=== PATIENT | female | born 1985 | race Caucasian/White ===

== ENCOUNTER 2018-07-31 21:19 | Inpatient (IN) ==
[2018-07-31] MEDS ORDERED: OXYTOCIN 30 UNITS/500 ML BAG IV PRN ×2 (22:19→22:23)
[2018-07-31] MEDS ORDERED: LACTATED RINGER'S 1,000 ML IV PRN (22:23)
--- NOTE | 2018-07-31 22:29 | History & Physical Report ---
Date of Service July 31, 2018 Assessment & Plan (1) Premature rupture of membranes: heart rate tracing is category 1. No regular uterine activity noted on monitor. Treatment options discussed with the patient. These include immediate labor induction versus observation for spontaneous labor. Risks and benefits of both of these discussed. Patient initially would like to see if spontaneous rupture develops. Patient will be observed for 6-7 hours, if regular contractions have not started by that time Pitocin per induction protocol will be initiated. All questions answered to the patient. History of Present Illness Chief Complaint: Possible rupture of membranes Primary Care Provider: Tasha Regan DO The patient is a 32-year-old 1 para 0 with an EDC of 25 August by first trimester ultrasound who was admitted at 36+ weeks gestational age with spontaneous rupture membranes. Patient states the membranes ruptured at approximately 1930 hrs. She described the fluid is clear. Patient denied any contractions. The patient has had a benign course. She had a low- lying placenta which resolved spontaneously and had a growth ultrasound at 32 weeks for obesity which showed an estimated weight at the 44th percentile. Laboratory values for the show blood type of AB+, antibody negative, rubella immune, hepatitis B negative, she had negative cell free DNA screening, she had an elevated 1 hour Glucola at 16 weeks, with normal 2-hour glucose tolerance is tests both 16 and 28 weeks, and she had a negative third trimester beta strep culture. Allergies Allergy/AdvReac Type Severity Reaction Status Date / Time No Known Allergies Allergy Verified 07/31/18 21:25 Home Medications Home Medications Medication Instructions Recorded Confirmed Type PNV cmb#95-ferrous fumarate-FA 1 tab PO DAILY 07/31/18 07/31/18 History [] Patient History Medical History Eczema Finger injury had pins in finger and then had them removed PCOS (polycystic ovarian syndrome) [place] teeth removed at age 13 Surgical History History of removal of skin mole at age 17 Family History Father Diabetes Hypertension High cholesterol Mother Hypothyroid High cholesterol Social History Preferred Language: Estonian Communication Ability: Effective Zygl[employer] Technician Required: No Beliefs That Will Affect Care: None marital status: Current Living Situation: Spouse Current Living Situation Comment: house Other Information That Helps Us Care for You: No Feels Safe at Home: Yes Safety Concerns: Feels Safe At This Time Smoking Status: Never smoker Hx Alcohol Use: No Hx Substance Use: No Physical Exam Vital Signs (Past 24 Hours): Last Vital Signs Temp 98.6 F 07/31/18 21:31 Pulse 98 H 07/31/18 21:31 Resp 20 07/31/18 21:31 BP 141/77 H 07/31/18 21:31 Constitutional: WD/WN, vitals as above Respiratory: Auscultation: lungs clear to auscultation bilaterally Cardiovascular: RRR, no murmur, no edema Extremities: no calf tenderness Gastrointestinal (Abdomen): Gravid, obese, positive heart tones, no palpable contractions, estimated weight of 7 pounds Genitourinary: Sterile speculum exam: Gross rupture with pooling of amniotic fluid Cervix: 1-2/80/-3 (1) Premature rupture of membranes PROM gestational age: -third trimester
[2018-07-31 22:42] LABS: Hemoglobin 12.2 g/dL (12.0-16.0); Mean Corpuscular Volume 82.4 fL (80-100); Mean Platelet Volume 11.3 fL (7.4-10.4); Platelet Count 183 K/uL (130-400); RDW Coefficient of Variation 14.5 % (11.5-14.5); RDW Standard Deviation 43.1 fL (36.4-46.3); Red Blood Count 4.37 M/uL (4.2-5.4); White Blood Count 13.41 K/uL (4.8-10.8)
[2018-07-31 22:43] LABS: Mean Corpuscular Hgb Conc 33.9 g/dL (32-36)
[2018-08-01] MEDS ORDERED: OXYCODONE/ACETAMINOPHEN 5mg/325mg TAB PO PRN (03:36)
[2018-08-01] MEDS ORDERED: LACTATED RINGER'S 1,000 ML IV PRN (05:03)
[2018-08-01] MEDS ORDERED: ONDANSETRON INJ 2 MG/ML 2 ML VIAL IV PRN ×2 (05:03→09:35)
[2018-08-01] MEDS ORDERED: LACTATED RINGER'S 1,000 ML IV SCH ×3 (05:15→09:33)
--- NOTE | 2018-08-01 06:29 | Obstetrical Progress Note ---
Date of Service August 01, 2018 Assessment & Plan (1) Premature rupture of membranes: - no regular ctx's consistent with active labor - tracing with no decelerations but minimal accelerations - difficult to monitor externally because of panus - IUPC/FSE placed - acceleration/variability with scalp placement - need to augment labor, but will hold pitocin for now until tracing becomes more re-assuring - discussed/explained to patient - all questions answered. Subjective nausea/vomiting Physical Exam Vital Signs (Past 24 Hours): Last Vital Signs Temp 98.2 F 08/01/18 04:56 Pulse 82 08/01/18 04:56 Resp 18 08/01/18 04:56 BP 115/59 L 08/01/18 04:56 Genitourinary: OB Exam Monitor Tracing: + scalp electrode used, + intra- uterine pressure catheter used and + category II (minimal accelerations) no change (1) Premature rupture of membranes PROM gestational age: -third trimester
--- NOTE | 2018-08-01 07:25 | Obstetrical Progress Note ---
Date of Service August 01, 2018 Assessment & Plan (1) Premature rupture of membranes: - FSE applied, but tracing with a "saw tooth" pattern - audibly does not sound like an arrhythmia - tried changing the monitor, cord and leg plate with no change - bedside U/S confirms vtx presentation - attempted to place another FSE, but patient too uncomfortable and did not tolerate the procedure - EFM re-applied - tracing examined from earlier and similar "saw tooth" pattern seen - this could possibly be some type of arrhythmia - will continue to monitor Physical Exam Vital Signs (Past 24 Hours): Last Vital Signs Temp 98.2 F 08/01/18 04:56 Pulse 82 08/01/18 04:56 Resp 18 08/01/18 04:56 BP 115/59 L 08/01/18 04:56 Genitourinary: OB Exam Monitor Tracing: + scalp electrode used and + intra-uterine pressure catheter used no change (1) Premature rupture of membranes PROM gestational age: -third trimester
[2018-08-01] MEDS ORDERED: MoRPHine SULFATE PF 1 MG/ML 10 ML AMP/VIAL ONE (08:37)
[2018-08-01] MEDS ORDERED: fentaNYL citrate 100 MCG/2 ML VIAL ONE (08:37)
[2018-08-01] MEDS ORDERED: OXYTOCIN 10 UNITS/ML VIAL ONE (08:38)
[2018-08-01] MEDS ORDERED: ONDANSETRON INJ 2 MG/ML 2 ML VIAL ONE (08:38)
--- NOTE | 2018-08-01 08:41 | Obstetrical Progress Note ---
Date of Service August 01, 2018 Assessment & Plan (1) Non-reassuring electronic monitoring tracing: - tracing continues to have decreased variability with occasional spontaneous decels - remote from delivery - will move towards C/S for NRFHT'ing - risks/benefits discussed with patient - permit signed Physical Exam Genitourinary: - cx: no change - Tracing Cat II, with occasional decels, no accelerations Results & Data Vital Signs (Past 12 Hours) Vital Signs Temp Pulse Resp BP 08/01/18 07:36 87 126/56 L 08/01/18 07:35 97.9 F 20 08/01/18 04:56 98.2 F 82 18 115/59 L 08/01/18 03:25 77 121/67 08/01/18 03:24 97.9 F 18 08/01/18 01:23 98.1 F 16 07/31/18 22:59 98.2 F 20 07/31/18 22:58 81 128/72 07/31/18 21:31 98.6 F 98 H 20 141/77 H 07/31/18 21:23 98.6 F 98 H 20 141/77 H
--- NOTE | 2018-08-01 08:42 | Anesthesiology Consultation ---
Date of Service August 01, 2018 Assessment & Plan (1) Encounter for pre-operative examination: Chart Review Chart Review: Acceptable Risk for Surgery and Patient NOT seen in Pre Admission Testing Consults Requested none ASA [id number] Proposed Anesthesia Anesthesia Type: Spinal Risk / Benefits Reviewed With: PT / POA / Parent / Guardian, Accepts Plan and I nformed Consent Obtained NPO Date Last Intake of Fluids: 08/01/18 Time Last Intake of Fluids: 08:00 Date Last Intake of Solids: 07/31/18 Time Last Intake of Solids: 18:00 History Surgery Operation Date: 08/01/18 08:35 Proposed Procedures p Section in LD(Bilateral) - Mino Vigil MD Height/Weight Height: 5 ft 11 in Weight: 141.067 kg Allergies Allergy/AdvReac Type Severity Reaction Status Date / Time No Known Allergies Allergy Verified 07/31/18 21:25 Medications Home Medications Medication Instructions Recorded Confirmed Last Taken PNV cmb#95-ferrous fumarate-FA 1 tab PO DAILY 07/31/18 07/31/18 07/31/18 17:00 [] Active Medications Generic Name Dose Route Start Last Admin Trade Name Freq PRN Reason Stop Dose Admin Lactated Ringer's 1,000 mls @ 999 mls/hr 07/31/18 22:23 08/01/18 05:34 Lr IV 08/02/18 22:22 Infused .Q1H1M PRN Infusion Tachysystole Lactated Ringer's 1,000 mls @ 125 mls/hr 08/01/18 05:15 08/01/18 05:34 Lr IV 08/03/18 05:14 125 mls/hr .Q8H TRACY Administration Past Medical History Medical History Eczema Finger injury had pins in finger and then had them removed PCOS (polycystic ovarian syndrome) [place] teeth removed at age 13 Past Family History Family History Father Diabetes Hypertension High cholesterol Mother Hypothyroid High cholesterol Past Surgical History Surgical History History of removal of skin mole at age 17 Past Anesthesia History No Hx of Anesthesia Complications and No Family Hx of Anesthesia Complications History of PONV No Motion Sickness Screening History of Motion Sickness: No Social History Smoking Status: Never smoker Hx Alcohol Use: No Hx Substance Use: No Exercise / Class Metabolic Activity II 4-5 Yardwork/Stairs/Walk up hill Physical Exam Vital Signs Last Vital Signs Temp 36.6 C 08/01/18 07:35 Pulse 87 08/01/18 07:36 Resp 20 08/01/18 07:35 BP 126/56 L 08/01/18 07:36 Constitutional + obese ENMT Mouth: + dentition abnormality; no TMJ abnormality and no TMJ clicking Thyromental Distance: > or= 3.5 Finger Breadths Mallampati Class: II Neck + short neck and + thick neck Respiratory normal respiratory effort Auscultation: lungs clear to auscultation bilaterally Cardiovascular Rate/Rhythm: regular rate and regular rhythm Musculoskeletal Spine: normal cervical ROM Neurologic moves all extremities Motor/Sensory: no sensory deficit Testing Laboratory Results 07/31/18 22:30
[2018-08-01] MEDS ORDERED: AZITHROMYCIN 500 MG in DEXTROSE 5% 250 ML IV SCH (08:45)
[2018-08-01] MEDS ORDERED: CITRIC ACID/SODIUM CITRATE 15 ML UDC ONE (08:55)
[2018-08-01] MEDS ORDERED: CEFAZOLIN 3000MG 65 ML IV SCH (09:00)
[2018-08-01] MEDS ORDERED: CITRIC ACID/SODIUM CITRATE 15 ML UDC PO SCH (09:00)
[2018-08-01] MEDS ORDERED: AZITHROMYCIN 500 MG in DEXTROSE 5% 250 ML IV ONE (09:15)
[2018-08-01] MEDS ORDERED: PHENYLEPHRINE 100MCG/ML 5ML SYR ONE (09:29)
[2018-08-01] MEDS ORDERED: NALOXONE HCL 1 MG in SODIUM CHLORIDE 0.9% 1000ML 1,000 ML IV PRN (09:35)
[2018-08-01] MEDS ORDERED: HYDROmorphone INJ 1 MG/ML SYRINGE IV PRN (09:35)
[2018-08-01] MEDS ORDERED: NALOXONE HCL 0.08 MG in SYRINGE 1.8 ML IV PRN (09:35)
[2018-08-01] MEDS ORDERED: NALOXONE HCL 0.4 MG/1 ML VIAL/CARP IV PRN (09:35)
[2018-08-01] MEDS ORDERED: MoRPHine SULFATE 2 MG/ML CARP IV PRN (09:35)
[2018-08-01] MEDS ORDERED: MoRPHine SULFATE PF 1 MG/ML 10 ML AMP/VIAL INT SPINAL ONE (09:35)
[2018-08-01] MEDS ORDERED: NALBUPHINE HCL INJ 10 MG/ML AMP IV PRN (09:35)
[2018-08-01] MEDS ORDERED: ePHEDrine sulfate 50 MG/ML AMP IV PRN (09:35)
[2018-08-01] MEDS ORDERED: DiphenhydrAMINE HCL 50 MG/ML VIAL IV PRN (09:35)
[2018-08-01] MEDS ORDERED: PROMETHAZINE HCL 25 MG in SODIUM CHLORIDE 0.9% 50 ML IV PRN (09:35)
[2018-08-01] MEDS ORDERED: LACTATED RINGER'S 500 ML IV PRN (09:35)
[2018-08-01] MEDS ORDERED: NO NARCOTICS OR SEDATIVES SCH (09:45)
[2018-08-01] MEDS ORDERED: SODIUM CHLORIDE 0.9% 1000ML 1,000 ML IV SCH (09:45)
[2018-08-01] MEDS ORDERED: SENNA 8.6 MG TAB PO PRN (09:53)
[2018-08-01] MEDS ORDERED: HYDROCORTISONE ACETATE 25 MG SUPP PR PRN (09:53)
[2018-08-01] MEDS ORDERED: BENZOCAINE 20% AER SPR 82.5 GM CAN EXT PRN (09:53)
[2018-08-01] MEDS ORDERED: DIPHTHERIA/TETANUS/PERTUSSIS 0.5 ML SYR/VIAL IM ONE (09:53)
[2018-08-01] MEDS ORDERED: SUPERCREAM 0.870% 15 GM JAR EXT PRN (09:53)
[2018-08-01] MEDS ORDERED: MAGNESIUM HYDROXIDE SUSP 30 ML UDC PO PRN (09:53)
--- NOTE | 2018-08-01 10:00 | Post Operative Brief Note ---
Immediate Post Op Note v1 Date of Surgery August 01, 2018 Pre & Post Diagnosis Operation Date: 08/01/18 08:35 Pre-Op Diagnosis: 1. Term;Non-reassurring FHR pattern Post-Op Diagnosis: Same Procedure Operation Date: 08/01/18 08:35 Actual Procedures p Section in LD(Bilateral) - Tyler Villegas Jr, MD, FACOG Surgeon Tyler Villegas Jr, MD, FACOG Tinner Helper Yaritza Estimated Blood Loss 800 Findings See Below (viable female, Apgars 7/10, weight 7lbs 3 ozs, gasses pending, vaccuum extration, normal appearing tubes and ovaries bilaterally) Drains Dixon Catheter
[2018-08-01 10:05] LABS: Base Excess Cord Arterial Bld -3.3 mEq/L (-9-1.8); CO2 Cord Arterial Blood 67 mmHg (39.1-73.5); HCO3 Cord Arterial Blood 26 mmol/L (19.7-28.5); pH Cord Arterial Blood 7.21 (7.1-7.38)
[2018-08-01 10:11] LABS: Base Excess Cord Venous Blood -2.9 mEq/L (-7.7-1.9); Cord Venous Blood HCO3 25 mmol/L (18.4-26.8); Cord Venous Blood PCO2 53 mmHg (30.4-57.2); Cord Venous Blood PO2 17 mmHg (14.1-43.3); Cord Venous Blood pH 7.29 (7.20-7.44)
[2018-08-01 10:12] LABS: O2 Saturation Cord Venous Bld < 60.0 % (<68)
--- NOTE | 2018-08-01 10:21 | Anesthesiology Progress Note ---
Date of Service August 01, 2018 Anesthesia Post Procedure Vital Signs Vital Signs: Temp Pulse Resp BP Pulse Ox 08/01/18 10:19 97 H 98 08/01/18 10:15 101 H 93 08/01/18 10:14 98 H 91 08/01/18 10:09 98 H 109/55 L 94 08/01/18 07:36 87 126/56 L 08/01/18 07:35 36.6 C 20 08/01/18 04:56 36.8 C 82 18 115/59 L 08/01/18 03:25 77 121/67 08/01/18 03:24 36.6 C 18 08/01/18 01:23 36.7 C 16 07/31/18 22:59 36.8 C 20 07/31/18 22:58 81 128/72 07/31/18 21:31 37 C 98 H 20 141/77 H 07/31/18 21:23 37.0 C 98 H 20 141/77 H Pain Intensity Bilateral Abdomen: Pain Intensity: 3 Notes Mental Status: alert / awake / arousable Patient Amnestic to Procedure: No Nausea / Vomiting: adequately controlled Pain: adequately controlled Airway Patency, RR, SpO2: stable & adequate BP & HR: stable & adequate Hydration State: stable & adequate Neuraxial Anesthesia: was administered and sensory block is resolving Anesthetic Complications: no major complications apparent and Pt Satisfied with anesthetic care
[2018-08-01] MEDS: OXYTOCIN 20 UNITS in LACTATED RINGER'S 1,000 ML IV SCH ×2 (11:03→19:16)
[2018-08-01] MEDS: KETOROLAC 30 MG/ML VIAL IV PRN ×2 (11:58→19:15)
[2018-08-01] MEDS: SIMETHICONE 80 MG CHEW PO SCH ×3 (15:07→20:56)
[2018-08-01] MEDS: DOCUSATE SODIUM 100 MG CAP PO SCH (20:56)
--- NOTE | 2018-08-01 21:37 | Operative Report ---
DATE OF OPERATION: 08/01/2018 PREOPERATIVE DIAGNOSES: 1. Spontaneous rupture of membranes at 36 weeks' gestational age. 2. Nonreassuring heart rate tracing. POSTOPERATIVE DIAGNOSES: 1. Spontaneous rupture of membranes at 36 weeks' gestational age. 2. Nonreassuring heart rate tracing. PROCEDURE PERFORMED: Primary lower cervical transverse section. SURGEON: Tyler Villegas MD. SOIL BIOLOGY TEACHER: Dr. Mino Loredo. ANESTHESIA: Spinal. FINDINGS: Viable female infant with Apgars of 7 and 10. Arterial and venous cord gases pending. Normal appearing tubes and ovaries bilaterally. PROCEDURE IN DETAIL: The patient was taken to the operating room and after spinal anesthesia, she was placed in supine position and draped and prepped in the usual fashion. Pfannenstiel type incision was made. Underlying subcutaneous tissue was dissected down to the ventral abdominal fascia, which was nicked and opened in a horizontal manner. Preperitoneal fascia was dissected away until the peritoneal cavity was entered and opened in a vertical manner. The Dimitris self-retaining retractor was inserted into the incision and deployed. The peritoneum overlying the uterus was elevated, opened in a semi-lunar fashion, the inferior margin of which was taken down creating the bladder flap. The uterus was entered sharply and extended in a semilunar fashion manually. Viable female infant was delivered by vacuum extraction. Cord was clamped and cut and the baby was passed off to pediatrics who was in attendance for the delivery. Cord gases, cord blood samples obtained. Placenta was delivered spontaneously and the uterus was exteriorized. The uterine cavity was wiped clean of any residual blood tissue and/or clot. The uterine incision was then closed with 2 layers of 4-0 Vicryl, the first a running locking stitch, the second an imbricating stitch. Hemostasis achieved and the uterus was returned to the pelvic cavity. The pericolic gutters were cleared bilaterally of any blood tissue and/or clot. Inspection of the incision again showed hemostasis. Sponge and needle count was correct. The Dimitris retractor was removed. The rectus muscle was then plicated in the midline with a running 2-0 Vicryl stitch. The fascia was closed laterally with a 0 Vicryl suture. The subcutaneous tissue was thoroughly irrigated and reapproximated with interrupted 2-0 plain sutures. The skin incision was closed with a 4-0 Monocryl subcuticular stitch. Sterile dressing was applied. The patient was taken to the recovery room in satisfactory condition. I attest to the content of the Intraoperative Record and any orders documented therein. Any exception s are noted below.
[2018-08-02] MEDS: KETOROLAC 30 MG/ML VIAL IV PRN (02:06)
[2018-08-02] MEDS ORDERED: LACTATED RINGER'S 1,000 ML IV SCH (02:30)
[2018-08-02] MEDS ORDERED: DC INTRASPINAL MORPHINE ONE (03:35)
[2018-08-02] MEDS ORDERED: DiphenhydrAMINE HCL 50 MG/ML VIAL IV PRN (03:36)
[2018-08-02] MEDS ORDERED: PROMETHAZINE HCL 25 MG in SODIUM CHLORIDE 0.9% 50 ML IV PRN (03:36)
[2018-08-02] MEDS ORDERED: ONDANSETRON INJ 2 MG/ML 2 ML VIAL IV PRN (03:36)
[2018-08-02] MEDS ORDERED: KETOROLAC 30 MG/ML VIAL IV PRN (03:36)
--- NOTE | 2018-08-02 07:10 | Obstetrical Progress Note ---
Date of Service <Nataliia De Leon MD - Last Filed: 08/02/18 08:09> August 02, 2018 Assessment & Plan <Nataliia De Leon MD - Last Filed: 08/02/18 08:09> (1) delivery delivered: 32yo with for nonreassuring heart tones. POST-OP DAY #1 -Doing well -Routine post-op/ care -Ambulation encouraged -Pain Control -will continue to monitor Subjective <Nataliia De Leon MD - Last Filed: 08/02/18 08:09> Ambulation: ambulating normally Voiding: no voiding problems (shah removed ~3:30Am, has not voided yet) Passing Gas:: Yes Diet Tolerance:: regular diet (with breakfast this AM. Has been on clear liquids up until then.) Lochia:: Moderate Feeding Type:: breast feeding Current Pain Level(1-10): 2 Respiratory: no dyspnea Cardiovascular: no chest pain, no palpitations and no calf pain Gastrointestinal: no nausea and no vomiting Neurologic: + headache(s) (had one last night) Physical Exam <Nataliia De Leon MD - Last Filed: 08/02/18 08:09> Vital Signs (Past 24 Hours) Last Vital Signs Temp 36.8 C 08/02/18 03:35 Pulse 94 H 08/02/18 03:35 Resp 18 08/02/18 03:35 BP 113/74 08/02/18 03:35 Pulse Ox 95 08/02/18 03:35 Respiratory normal respiratory effort, lungs clear to auscultation Cardiovascular Rate/Rhythm: regular rate and regular rhythm Extremities: no calf tenderness Gastrointestinal (Abdomen) Inspection/Auscultation: + abdominal surgical incision (covered with clean, dry bandage) Genitourinary OB Exam Abdomen: + fundal height Fundus: + firm and + relation to umbilicus (1 above) Results & Data <Nataliia De Leon MD - Last Filed: 08/02/18 08:09> Laboratory Results Laboratory Results - last 24 hr 07/31/18 08/01/18 08/01/18 22:30 09:22 09:34 Cord ABG pH 7.21 Cord ABG pCO2 67 Cord ABG pO2 16.0 Cord ABG HCO3 26 Cord ABG Base Excess -3.3 Cord ABG O2 Sat < 60.0 Cord VBG pH 7.29 Cord VBG pCO2 53 Cord VBG pO2 17 Cord VBG HCO3 25 Cord VBG Base Excess -2.9 Cord VBG O2 Sat < 60.0 Barometric Pressure 732.1 732.1 Blood Gas Comments S[place]UL[place] S[place] Blood Type AB Positive Antibody Screen NEGATIVE Medications Administered Home Medications PNV cmb#95-ferrous fumarate-FA [] 1 tab PO DAILY 07/31/18 [History Confirmed 07/31/18] Active Medications Benzocaine (Dermoplast Pain Relieving [place]) 1 appln EXT UD PRN PRN Reason: use on skin as needed Stop: 08/31/18 09:52 Bisacodyl (Dulcolax) 5 mg PO 2000 [facility] Stop: 08/02/18 20:01 Bisacodyl (Dulcolax) 10 mg MT PRN PRN PRN Reason: Constipation Stop: 09/02/18 09:53 Cocaine HCl (Supercream 0.870%) 1 gm EXT UD PRN PRN Reason: hemmorrhoidal inflammation Stop: 08/15/18 09:52 Diphenhydramine HCl (Benadryl) 25 mg IV QID PRN PRN Reason: Itching Stop: 09/01/18 03:35 Diphenhydramine HCl (Benadryl Capsule) 25 mg PO QID PRN PRN Reason: Itching Stop: 09/01/18 03:35 Docusate Sodium (Colace) 100 mg PO BID [facility] Stop: 08/31/18 20:59 Last Admin: 08/01/18 20:56 Dose: Not Given Documented by: Ferrous Sulfate (Feosol) 325 mg PO QAM TRACY Stop: 09/01/18 08:59 Hydrocortisone (Anusol Hc) 25 mg MT BID PRN PRN Reason: Hemorrhoids Stop: 08/31/18 09:52 Oxytocin (Pitocin) 30 units in 500 mls @ 333.333 mls/hr IV .Q1H30M PRN; Protocol PRN Reason: Bleeding Control Stop: 08/30/18 22:18 Lactated Ringer's (Lr) 1,000 mls @ 999 mls/hr IV .Q1H1M PRN PRN Reason: Tachysystole Stop: 08/02/18 22:22 Last Infusion: 08/01/18 05:34 Dose: Infused Documented by: Oxytocin (Pitocin) 30 units in 500 mls @ 1 mls/hr IV .Q24H PRN; Protocol PRN Reason: Labor Induction/Augmentation Stop: 08/02/18 22:22 Lactated Ringer's (Lr) 1,000 mls @ 125 mls/hr IV .Q8H TRACY Stop: 08/03/18 05:14 Last Infusion: 08/01/18 08:30 Dose: 999 mls/hr Documented by: Lactated Ringer's (Lr) 1,000 mls @ 999 mls/hr IV .Q1H1M PRN PRN Reason: (Pre-Anesthesia) Stop: 08/31/18 05:02 Lactated Ringer's (Lr) 1,000 mls @ 125 mls/hr IV .Q8H TRACY Stop: 08/31/18 09:32 Lactated Ringer's (Lr) 1,000 mls @ 125 mls/hr IV .Q8H TRACY Stop: 09/01/18 02:29 Promethazine HCl 25 mg/ Sodium (Chloride) 51 mls @ 204 mls/hr IV Q4H PRN PRN Reason: Nausea And Vomiting Stop: 09/01/18 03:35 Ibuprofen (Motrin) 600 mg PO Q4H PRN PRN Reason: Pain Stop: 08/31/18 09:52 Ketorolac Tromethamine (Toradol) 30 mg IV Q6H PRN PRN Reason: Pain Stop: 08/07/18 03:35 Magnesium Hydroxide (Milk Of Magnesia) 30 ml PO HS PRN PRN Reason: Constipation Stop: 08/31/18 09:52 Ondansetron HCl (Zofran) 4 mg IV Q4H PRN PRN Reason: Nausea Stop: 08/31/18 05:02 Ondansetron HCl (Zofran) 4 mg IV Q4H PRN PRN Reason: Nausea And Vomiting Stop: 09/01/18 03:35 Oxycodone/Acetaminophen (Percocet 5mg/325mg) 1 - 2 tab PO Q4H PRN PRN Reason: Pain Stop: 08/15/18 03:35 Prenat Multivit/[place]/Iron/Folic Ac ( Vitamin) 1 tab PO QAM TRACY Stop: 09/01/18 08:59 Sennosides (Senokot) 17.2 mg PO HS PRN PRN Reason: Constipation Stop: 08/31/18 09:52 Simethicone (Mylicon) 80 mg PO QID [facility] Stop: 08/31/18 12:59 Last Admin: 08/01/18 20:56 Dose: Not Given Documented by: <Mino Vigil MD - Last Filed: 08/08/18 09:44> Co-Signing Physician Notes Patient seen and evaluated and agree with the above finding and plan
--- NOTE | 2018-08-02 07:28 | Anesthesiology Progress Note ---
Date of Service August 02, 2018 Anesthesia Post Procedure Vital Signs Vital Signs: Temp Pulse Pulse Resp BP BP Pulse Ox 08/02/18 03:35 36.8 C 94 H 18 113/74 95 08/02/18 02:10 18 99 08/02/18 01:00 18 96 08/02/18 00:15 18 96 08/01/18 23:05 36.7 C 102 H 18 118/61 94 08/01/18 22:25 18 93 08/01/18 22:03 18 92 08/01/18 20:56 16 93 08/01/18 19:20 37.5 C 108 H 18 98/63 L 95 08/01/18 18:00 18 100 08/01/18 17:00 18 100 08/01/18 16:00 18 99 08/01/18 15:05 37.4 C 99 H 18 113/78 96 08/01/18 14:40 36.9 C 84 16 106/67 99 08/01/18 13:40 89 18 114/72 100 08/01/18 13:10 36.8 C 82 18 115/72 97 08/01/18 12:35 37.2 C 82 18 103/63 100 08/01/18 12:24 82 100 08/01/18 12:19 84 118/69 98 08/01/18 12:14 87 99 08/01/18 12:09 36.9 C 88 20 117/65 100 08/01/18 12:04 77 100 08/01/18 11:59 81 119/71 100 08/01/18 11:54 93 H 100 08/01/18 11:49 89 100 08/01/18 11:44 94 H 100 08/01/18 11:39 95 H 20 138/79 100 08/01/18 11:34 98 H 100 08/01/18 11:29 89 133/76 100 08/01/18 11:24 90 100 08/01/18 11:20 91 H 103/55 L 08/01/18 11:19 88 100 08/01/18 11:14 92 H 100 08/01/18 11:10 37.0 C 88 20 120/68 08/01/18 11:09 89 16 100 08/01/18 11:04 86 100 08/01/18 10:59 79 16 128/71 100 08/01/18 10:54 85 100 08/01/18 10:49 90 16 120/61 100 08/01/18 10:44 88 100 08/01/18 10:39 95 H 16 121/65 100 08/01/18 10:34 95 H 100 08/01/18 10:29 93 H 20 121/68 100 08/01/18 10:24 98 H 96 08/01/18 10:21 92 H 114/59 L 08/01/18 10:19 97 H 20 98 08/01/18 10:15 101 H 93 08/01/18 10:14 98 H 91 08/01/18 10:09 37.0 C 98 H 20 109/55 L 94 08/01/18 07:36 87 126/56 L 08/01/18 07:35 36.6 C 20 Pain Intensity Bilateral Abdomen: Pain Intensity: 1 Notes Mental Status: alert / awake / arousable Patient Amnestic to Procedure: No Nausea / Vomiting: adequately controlled Pain: adequately controlled Airway Patency, RR, SpO2: stable & adequate BP & HR: stable & adequate Hydration State: stable & adequate Neuraxial Anesthesia: was administered and sensory block resolved Anesthetic Complications: no major complications apparent and Pt Satisfied with anesthetic care
[2018-08-02 08:00] LABS: Basophils # (auto) 0.02 K/uL (0-0.2); Basophils % (auto) 0.1 %; Eosinophils # (auto) 0.19 K/uL (0-0.5); Eosinophils % (auto) 1.3 %; Hematocrit (blood only) 32.4 % (37-47); Hemoglobin 10.9 g/dL (12.0-16.0); Immature Granulocytes # (auto) 0.04 K/uL (0.00-0.02); Immature Granulocytes % (auto) 0.3 %; Lymphocytes % (auto) 11.4 %; Mean Corpuscular Hgb Conc 33.6 g/dL (32-36); Mean Corpuscular Volume 83.9 fL (80-100); Monocytes % (auto) 6.1 %; Neutrophils # (auto) 12.02 K/uL (1.4-6.5); Neutrophils % (auto) 80.8 %; Platelet Count 150 K/uL (130-400); RDW Coefficient of Variation 14.7 % (11.5-14.5); RDW Standard Deviation 44.7 fL (36.4-46.3); Red Blood Count 3.86 M/uL (4.2-5.4); White Blood Count 14.87 K/uL (4.8-10.8)
[2018-08-02] MEDS: SIMETHICONE 80 MG CHEW PO SCH ×4 (08:42→19:45)
[2018-08-02] MEDS: FERROUS SULFATE 325 MG TAB PO SCH (08:42)
[2018-08-02] MEDS: PRENATAL VITAMIN 1 TAB PO SCH (08:43)
[2018-08-02] MEDS: DOCUSATE SODIUM 100 MG CAP PO SCH ×2 (08:43→19:46)
[2018-08-02] MEDS: IBUPROFEN 600 MG TAB PO PRN ×3 (08:46→19:46)
[2018-08-02] MEDS ORDERED: BISACODYL 5 MG TABEC PO SCH (20:00)
[2018-08-03] MEDS: IBUPROFEN 600 MG TAB PO PRN ×5 (02:30→22:54)
--- NOTE | 2018-08-03 06:41 | Obstetrical Progress Note ---
Date of Service <Nataliia De Leon MD - Last Filed: 08/03/18 07:06> August 03, 2018 Assessment & Plan <Nataliia De Leon MD - Last Filed: 08/03/18 07:06> (1) delivery delivered: 32yo with for nonreassuring heart tones. POST-OP DAY #2 -Doing well. Feels well enough for discharge today -Discharge instructions reviewed Until Discharge: -Routine post-op/ care -Ambulation encouraged -Pain Control Subjective <Nataliia De Leon MD - Last Filed: 08/03/18 07:06> Ambulation: ambulating normally Voiding: no voiding problems Passing Gas:: Yes Diet Tolerance:: regular diet Lochia:: Moderate Feeding Type:: breast feeding Current Pain Level(1-10): 3 Respiratory: no dyspnea Cardiovascular: + edema; no chest pain, no palpitations and no calf pain Gastrointestinal: no nausea and no vomiting Neurologic: no headache(s) Physical Exam <Nataliia De Leon MD - Last Filed: 08/03/18 07:06> Vital Signs (Past 24 Hours) Last Vital Signs Temp 36.4 C L 08/02/18 23:05 Pulse 80 08/02/18 23:05 Resp 18 08/02/18 23:05 BP 106/71 08/02/18 23:05 Pulse Ox 97 08/02/18 15:30 Respiratory normal respiratory effort, lungs clear to auscultation Cardiovascular Rate/Rhythm: regular rate and regular rhythm Extremities: + pedal edema; no calf tenderness Gastrointestinal (Abdomen) Inspection/Auscultation: + abdominal surgical incision (incision clean, dry, intact. No evidence of bleeding or drainage) Results & Data <Nataliia De Leon MD - Last Filed: 08/03/18 07:06> Laboratory Results Laboratory Results - last 24 hr 08/02/18 07:47 WBC 14.87 H RBC 3.86 L Hgb 10.9 L Hct 32.4 L MCV 83.9 MCH 28.2 MCHC 33.6 RDW Std Deviation 44.7 RDW Coeff of Roderick 14.7 H Plt Count 150 MPV 11.0 H Immature Gran % (Auto) 0.3 Neut % (Auto) 80.8 Lymph % (Auto) 11.4 [place] % (Auto) 6.1 Eos % (Auto) 1.3 Baso % (Auto) 0.1 Immature Gran # (Auto) 0.04 H Neut # (Auto) 12.02 H Lymph # (Auto) 1.70 [place] # (Auto) 0.90 H Eos # (Auto) 0.19 Baso # (Auto) 0.02 Medications Administered Home Medications PNV cmb#95-ferrous fumarate-FA [] 1 tab PO DAILY 07/31/18 [History Confirmed 07/31/18] Active Medications Benzocaine (Dermoplast Pain Relieving [place]) 1 appln EXT UD PRN PRN Reason: use on skin as needed Stop: 08/31/18 09:52 Bisacodyl (Dulcolax) 10 mg VA PRN PRN PRN Reason: Constipation Stop: 09/02/18 09:53 Cocaine HCl (Supercream 0.870%) 1 gm EXT UD PRN PRN Reason: hemmorrhoidal inflammation Stop: 08/15/18 09:52 Diphenhydramine HCl (Benadryl) 25 mg IV QID PRN PRN Reason: Itching Stop: 09/01/18 03:35 Diphenhydramine HCl (Benadryl Capsule) 25 mg PO QID PRN PRN Reason: Itching Stop: 09/01/18 03:35 Docusate Sodium (Colace) 100 mg PO BID [facility] [place] [place] Stop: 08/31/18 20:59 Last Admin: 08/02/18 19:46 Dose: 100 mg Documented by: Ferrous Sulfate (Feosol) 325 mg PO QAM [facility] Stop: 09/01/18 08:59 Last Admin: 08/02/18 08:42 Dose: 325 mg Documented by: Hydrocortisone (Anusol Hc) 25 mg VA BID PRN PRN Reason: Hemorrhoids Stop: 08/31/18 09:52 Oxytocin (Pitocin) 30 units in 500 mls @ 333.333 mls/hr IV .Q1H30M PRN; Protocol PRN Reason: Bleeding Control Stop: 08/30/18 22:18 Lactated Ringer's (Lr) 1,000 mls @ 999 mls/hr IV .Q1H1M PRN PRN Reason: (Pre-Anesthesia) Stop: 08/31/18 05:02 Lactated Ringer's (Lr) 1,000 mls @ 125 mls/hr IV .Q8H [facility] Stop: 08/31/18 09:32 Lactated Ringer's (Lr) 1,000 mls @ 125 mls/hr IV .Q8H [facility] Stop: 09/01/18 02:29 Promethazine HCl 25 mg/ Sodium (Chloride) 51 mls @ 204 mls/hr IV Q4H PRN PRN Reason: Nausea And Vomiting Stop: 09/01/18 03:35 Ibuprofen (Motrin) 600 mg PO Q4H PRN PRN Reason: Pain Stop: 08/31/18 09:52 Last Admin: 08/03/18 02:30 Dose: 600 mg Documented by: Ketorolac Tromethamine (Toradol) 30 mg IV Q6H PRN PRN Reason: Pain Stop: 08/07/18 03:35 Magnesium Hydroxide (Milk Of Magnesia) 30 ml PO HS PRN PRN Reason: Constipation Stop: 08/31/18 09:52 Ondansetron HCl (Zofran) 4 mg IV Q4H PRN PRN Reason: Nausea Stop: 08/31/18 05:02 Ondansetron HCl (Zofran) 4 mg IV Q4H PRN PRN Reason: Nausea And Vomiting Stop: 09/01/18 03:35 Oxycodone/Acetaminophen (Percocet 5mg/325mg) 1 - 2 tab PO Q4H PRN PRN Reason: Pain Stop: 08/15/18 03:35 Prenat Multivit/[place]/Iron/Folic Ac ( Vitamin) 1 tab PO QAM [facility] [place] Stop: 09/01/18 08:59 Last Admin: 08/02/18 08:43 Dose: 1 tab Documented by: Sennosides (Senokot) 17.2 mg PO HS PRN PRN Reason: Constipation Stop: 08/31/18 09:52 Simethicone (Mylicon) 80 mg PO QID [facility] Stop: 08/31/18 12:59 Last Admin: 08/02/18 19:45 Dose: 80 mg Documented by: <Irma Higginbotham MD - Last Filed: 08/03/18 08:07> Co-Signing Physician Notes I have reviewed the resident's note and examined the patient myself, and agree with the note above.
[2018-08-03 06:44] LABS: Hematocrit (blood only) 31.8 % (37-47); Hemoglobin 10.6 g/dL (12.0-16.0)
[2018-08-03] MEDS: DOCUSATE SODIUM 100 MG CAP PO SCH ×2 (08:21→21:01)
[2018-08-03] MEDS: PRENATAL VITAMIN 1 TAB PO SCH (08:21)
[2018-08-03] MEDS: SIMETHICONE 80 MG CHEW PO SCH ×4 (08:21→21:01)
[2018-08-03] MEDS: FERROUS SULFATE 325 MG TAB PO SCH (08:21)
[2018-08-03] MEDS ORDERED: BISACODYL 10 MG SUPP PR PRN (09:54)
[2018-08-04] MEDS: IBUPROFEN 600 MG TAB PO PRN ×2 (04:54→09:10)
--- NOTE | 2018-08-04 06:59 | Obstetrical Progress Note ---
Date of Service <Nataliia De Leon MD - Last Filed: 08/04/18 07:17> August 04, 2018 Assessment & Plan <Nataliia De Leon MD - Last Filed: 08/04/18 07:17> (1) delivery delivered: 32yo with for nonreassuring heart tones. POST-OP DAY #3 -Doing well. -DISCHARGE TODAY -Discharge instructions reviewed Day #:: 3 Subjective <Nataliia De Leon MD - Last Filed: 08/04/18 07:17> Ambulation: ambulating normally Voiding: no voiding problems Passing Gas:: Yes Diet Tolerance:: regular diet Lochia:: Moderate Feeding Type:: breast feeding Respiratory: no dyspnea Cardiovascular: no chest pain, no palpitations and no calf pain Gastrointestinal: no nausea and no vomiting Neurologic: no headache(s) Physical Exam <Nataliia De Leon MD - Last Filed: 08/04/18 07:17> Vital Signs (Past 24 Hours) Last Vital Signs Temp 36.5 C 08/03/18 23:20 Pulse 71 08/03/18 23:20 Resp 18 08/03/18 23:20 BP 120/78 08/03/18 19:15 Pulse Ox 97 08/03/18 19:15 Respiratory normal respiratory effort, lungs clear to auscultation Cardiovascular Rate/Rhythm: regular rate and regular rhythm Extremities: no calf tenderness Gastrointestinal (Abdomen) Inspection/Auscultation: + abdominal surgical incision (clean, dry and intact with no evidence of bleeding or drainage) Genitourinary OB Exam Abdomen: + fundal height Fundus: + firm and + relation to umbilicus (at umbilicus) Results & Data <Nataliia De Leon MD - Last Filed: 08/04/18 07:17> Medications Administered Home Medications PNV cmb#95-ferrous fumarate-FA [] 1 tab PO DAILY 07/31/18 [History Confirmed 07/31/18] oxycodone-acetaminophen 1 tab PO Q6H PRN #20 tab 08/03/18 [Rx] Active Medications Benzocaine (Dermoplast Pain Relieving [place]) 1 appln EXT UD PRN PRN Reason: use on skin as needed Stop: 08/31/18 09:52 Bisacodyl (Dulcolax) 10 mg SD PRN PRN PRN Reason: Constipation Stop: 09/02/18 09:53 Cocaine HCl (Supercream 0.870%) 1 gm EXT UD PRN PRN Reason: hemmorrhoidal inflammation Stop: 08/15/18 09:52 Diphenhydramine HCl (Benadryl) 25 mg IV QID PRN PRN Reason: Itching Stop: 09/01/18 03:35 Diphenhydramine HCl (Benadryl Capsule) 25 mg PO QID PRN PRN Reason: Itching Stop: 09/01/18 03:35 Docusate Sodium (Colace) 100 mg PO BID [facility] Stop: 08/31/18 20:59 Last Admin: 08/03/18 21:01 Dose: 100 mg Documented by: Ferrous Sulfate (Feosol) 325 mg PO QAM [facility] Stop: 09/01/18 08:59 Last Admin: 08/03/18 08:21 Dose: 325 mg Documented by: Hydrocortisone (Anusol Hc) 25 mg SD BID PRN PRN Reason: Hemorrhoids Stop: 08/31/18 09:52 Oxytocin (Pitocin) 30 units in 500 mls @ 333.333 mls/hr IV .Q1H30M PRN; Protocol PRN Reason: Bleeding Control Stop: 08/30/18 22:18 Lactated Ringer's (Lr) 1,000 mls @ 999 mls/hr IV .Q1H1M PRN PRN Reason: (Pre-Anesthesia) Stop: 08/31/18 05:02 Lactated Ringer's (Lr) 1,000 mls @ 125 mls/hr IV .Q8H [facility] Stop: 08/31/18 09:32 Lactated Ringer's (Lr) 1,000 mls @ 125 mls/hr IV .Q8H [facility] Stop: 09/01/18 02:29 Promethazine HCl 25 mg/ Sodium (Chloride) 51 mls @ 204 mls/hr IV Q4H PRN PRN Reason: Nausea And Vomiting Stop: 09/01/18 03:35 Ibuprofen (Motrin) 600 mg PO Q4H PRN PRN Reason: Pain Stop: 08/31/18 09:52 Last Admin: 08/04/18 04:54 Dose: 600 mg Documented by: Ketorolac Tromethamine (Toradol) 30 mg IV Q6H PRN PRN Reason: Pain Stop: 08/07/18 03:35 Magnesium Hydroxide (Milk Of Magnesia) 30 ml PO HS PRN PRN Reason: Constipation Stop: 08/31/18 09:52 Ondansetron HCl (Zofran) 4 mg IV Q4H PRN PRN Reason: Nausea Stop: 08/31/18 05:02 Ondansetron HCl (Zofran) 4 mg IV Q4H PRN PRN Reason: Nausea And Vomiting Stop: 09/01/18 03:35 Oxycodone/Acetaminophen (Percocet 5mg/325mg) 1 - 2 tab PO Q4H PRN PRN Reason: Pain Stop: 08/15/18 03:35 Prenat Multivit/[place]/Iron/Folic Ac ( Vitamin) 1 tab PO QAM [facility] Stop: 09/01/18 08:59 Last Admin: 08/03/18 08:21 Dose: 1 tab Documented by: Sennosides (Senokot) 17.2 mg PO HS PRN PRN Reason: Constipation Stop: 08/31/18 09:52 Simethicone (Mylicon) 80 mg PO QID [facility] Stop: 08/31/18 12:59 Last Admin: 08/03/18 21:01 Dose: 80 mg Documented by: <Grisel Weber MD, FACOG - Last Filed: 08/04/18 07:26> Co-Signing Physician Notes Resident Physician Supervision Note: I interviewed and examined the patient. Discussed with Dr. De Leon and agree with findings and plan as documented in the note. Any exceptions or clarifications are listed here: Doing well. Plan d/c. Instructions reviewed. Documented By: Grisel Weber MD, FACOG
[2018-08-04] MEDS: FERROUS SULFATE 325 MG TAB PO SCH (09:11)
[2018-08-04] MEDS: PRENATAL VITAMIN 1 TAB PO SCH (09:11)
[2018-08-04] MEDS: DOCUSATE SODIUM 100 MG CAP PO SCH (09:11)
[2018-08-04] MEDS: SIMETHICONE 80 MG CHEW PO SCH (09:13)
--- NOTE | 2018-08-05 00:20 | Discharge Summary ---
ADMITTING DIAGNOSES: 1. Intrauterine at 36 weeks' gestational age. 2. premature rupture of the membranes. DISCHARGE DIAGNOSES: 1. Intrauterine at 36 weeks' gestational age. 2. Nonreassuring heart rate tracing. PROCEDURE PERFORMED: Primary low cervical transverse section. DISCHARGE MEDICATIONS: Percocet 5/325 mg 1-2 p.o. q. 6 hours p.r.n. pain. ADMISSION HISTORY: The patient is a 32-year-old 1, para 1 with an EDC of 08/25/2018 by first trimester ultrasound who is admitted at 36+ weeks gestational age with spontaneous rupture of membranes. The patient states the membranes ruptured at approximately 1930 hours on the day of admission. She described the fluid as clear. She denied any contractions. The patient had had a benign course. She was noted to have a low lying placenta earlier in the which resolved spontaneously and had a growth ultrasound at 32 weeks for obesity which showed an estimated weight at 44th percentile. Laboratory values for the show a blood type of AB positive, antibody negative, rubella immune, hepatitis B negative. She had negative cell free DNA screening. She had an elevated 1-hour Glucola at 16 weeks with a normal 2-hour glucose tolerance test at both 16 and 28 weeks and a negative third trimester beta strep culture. PHYSICAL EXAMINATION: GENERAL: Showed a gravid female, in no acute distress. VITAL SIGNS: Blood pressure 141/77. HEENT: Unremarkable. NECK: Supple. LUNGS: Clear. HEART: With a regular rhythm and rate. ABDOMEN: Gravid, vertex, positive heart tones. No palpable contractions. Estimated weight of 7 pounds. PELVIC: Sterile speculum examination showed gross rupture of amniotic fluid pooling in the vagina. Cervix is 1-2 cm dilated, 80% effaced and -3 station. heart rate tracing was felt to be category 1. ADMISSION LABORATORY VALUES: Showed an H and H of 12.2 and 36. HOSPITAL COURSE: A diagnosis of rupture of membranes was explained to the patient. Management options were reviewed. These included immediate labor induction versus observation for spontaneous labor. Risks and benefits of both of these were discussed. The patient initially wanted to see if contractions spontaneously developed. The plan was to observe for 6-7 hours and if regular contractions are not started, then Pitocin per induction protocol would be initiated. Approximately 6-7 hours after admission, the patient's heart rate tracing lost variability. In addition, there seemed to be a small saw tooth pattern to the external monitor. No audible arrhythmia could be detected. Because of the patient's size, there was some difficulty in tracing the baby and a decision was made to proceed with internal monitors. After obtaining verbal consent, an intrauterine pressure catheter and a scalp electrode was applied. With application of the scalp electrode, there was variability in acceleration. Approximately 10-15 minutes after placing the scalp electrode, the saw tooth pattern returned, which was more pronounced. In addition, there was loss of accelerations. The patient had random decelerations, not with contractions that responded to positioning and oxygen placement. The patient was not in active labor and had no cervical change. A thought process of the scalp electrode malfunctioning was entertained and the cord to the scalp electrode was replaced as well as the monitor. There was no change in the heart rate pattern. A new scalp electrode was attempted to be applied, but the patient could not tolerate this secondary to the high station. After observing for approximately another 2 hours, this pattern with no accelerations, a decision was made to move toward section for nonreassuring heart rate tracing, remote from delivery. The risks, benefits and alternatives to the surgery were discussed and the permit was signed. The patient was taken to the operating room where she underwent the section. Operative findings were a viable female with Apgars of 7 and 10. Arterial cord pH of 7.21 and a venous cord pH of 7.29. Normal appearing tubes and ovaries bilaterally. Postoperatively, the patient did well. Dixon catheter was removed on the first postoperative day. H and H came back at 10.9 and 32.4. By the third postoperative day, the patient was ambulating without difficulty and tolerating a regular diet. The baby was evaluated per pediatric management. echocardiogram was within normal limits. The patient was discharged home with the baby on postoperative day #3 with prescriptions for the medications as listed as above. She will follow up in the office for a postoperative check but as always she was instructed to call with any questions, problems or difficulties. PADMINI
--- OUTSIDE RECORDS SUMMARY | 2018-08-07 15:49 | External Medical Summary | Continuity of Care Document ---
:1985 Author Name Lincoln Zavaleta, Provider Address Unavailable Unavailable , Care Team Providers Name Role Phone Unavailable Unavailable Unavailable JANETH RUBIN Unavailable Unavailable Unavailable Unavailable Unavailable Assessments Assessed Problems:Encounter for care and examination of lactating mother Problems Encounter for supervision of normal prim igravida in third trimester, antepartum (V22.0) (Z34.03) Encounter for care and examination of lactating mother (V24. 1) (Z39.1) Morbid obesity (278.01) (E66.01) Obesity complicating (649.10) (O99.210) Non smoker (V49.89) (Z78.9) Eczema (692.9) (L30.9) Allergies and Adverse Reactions No Known Allergies (Allergy) Medications Vitamins Waqar BAH Refills: 0 Procedures History of wisdom tooth extraction Statu s: Completed Immunizations Tdap (Adacel) On: 02-Jun-2018 16:30 Lot #: [id number], [employer]UR Family History Mother Family history of High cholesterol (272.0) (E78.00) Status: Active Family history of hypothyroidism (V18.19) (Z83.49) Status: A ctive Father Family history of High cholesterol (272.0) (E78.00) Status: Active Family history of diabetes mellitus (V18.0) (Z83.3) Status: Active Family history of cardiac disorder (V17.49) (Z82.49) Status: Active Family history of hypertension (V17.49) (Z82.49) Status: Act dixie Grandmother Family history of malignant neoplasm of breast (V16.3) (Z80. 3) Status: Active Interventions SuppliesBreast Pump; To Be Done: 03 Aug 2018 Plan of Treatment Planned Observations Planned Goals not documented Results Group B Strep/RAZO 28-Jul-2018 16:24 GRP B BETA STREP CULTURE - RAZO ORDERED P ROCEDURE : GRP B Beta Strep Culture -RAZO; Speciment : V aginal/Rectal Source of Specimen: Vaginal/ Rectal Group B St rep Culture : No Group B Strep isolated Vital Signs 28-Jul-2018 13:54 Systolic 112 mm[Hg] Diastolic 74 mm[Hg] Height 69.5 in Weight 311.4 lb BMI Calculated 45.33 kg/m2 BSA Calculated 2.51 m2 14-Jul-2018 14:58 Systolic 138 mm[Hg] Diastolic 82 mm[Hg] Height 69.5 in Weight 312.5 lb BMI Calculated 45.49 kg/m2 BSA Calculated 2.51 m2 Encounters Appointment; Umm Nichols DO 28-Jul-2018 13:40 Encounter Diagnosis: Problem not documented Appointment; Grisel Weber M.D. 14-Jul-2018 15:10 Encounter Diagnosis: Problem not documented Appointment; Mino Vigil M.D. 30-Jun-2018 15:10 Encounter Diagnosis: Problem not documented Appointment; [facility], Ul[facility]ound 30-Jun-2018 14:30 Encounter Diagnosis: Problem not documented Appointment; Irma Higginbotham M.D. 16-Jun-2018 8:30 Encounter Diagnosis: Problem not documented Appointment; Umm Nichols DO 02-Jun-2018 16:00 Encounter Diagnosis: Problem not documented Appointment; Felisha Esparza M.D. 05-May-2018 16:10 Encounter Diagnosis: Problem not documented Appointment; [facility], Ul[facility]ound 05-May-2018 15:30 Encounter Diagnosis: Problem not documented Appointment; Tyler Villegas M.D. 07-Apr-2018 8:50 Encounter Diagnosis: Problem not documented Appointment; [facility], Ul[facility]ound 07-Apr-2018 8:00 Encounter Diagnosis: Problem not documented Appointment; Tyler Villegas M.D. 09-Mar-2018 16:30 Encounter Diagnosis: Problem not documented Appointment; Mino Vigil M.D. 13-Feb-2018 12:15 Encounter Diagnosis: Problem not documented Appointment; Julian Yu M.D. 10-Feb-2018 15:40 Encounter Diagnosis: Problem not documented Appointment; [facility], Procedure Rm 20-Jan-2018 8:20 Encounter Diagnosis: Problem not documented Appointment; Irma Higginbotham M.D. 20-Jan-2018 8:20 Encounter Diagnosis: Problem not documented Appointment; [facility], Nursing Station 2-Oct-2018 9:45 Encounter Diagnosis: Problem not documented Appointment; [facility], Ultrasound 30-Dec-2017 14:30 Encounter Diagnosis: Problem not documented Appointment; Tyler Villegas M.D. 21-Oct-2017 8:30 Encounter Diagnosis: Problem not documented
== END 2018-08-04 09:30 | disposition home or self-care (01) | DRG 787 ==
LOC: OPB 21:19 → 4S1 21:21 → 4S2 08-01 12:30
DX: Z37.0 Single live birth; O76 Abnormality in fetal heart rate and rhythm complicating labor and delivery; Z68.41 Body mass index [BMI] 40.0-44.9, adult; Z3A.36 36 weeks gestation of pregnancy; O42.013 Preterm premature rupture of membranes, onset of labor within 24 hours of rupture, third trimester; O99.214 Obesity complicating childbirth; E66.9 Obesity, unspecified